=== PATIENT | female | born 1990 ===

== ENCOUNTER 2017-05-04 18:51 | Emergency (ER) | payer OTHER ==
[2017-05-04] MEDS ORDERED: Sodium Chloride 0.9% 1,000 ML IV STA (19:38)
[2017-05-04] MEDS ORDERED: Alum-Mag Hydrox-Simethicone Susp (30 mL) PO STA (19:38)
[2017-05-04 20:22] LABS: BASO % 0.2 % (0.0-2.0); EOS % 0.2 % (0.0-4.0); HEMOGLOBIN 12.8 g/dL (12.0-16.0); LYMPH # 3.4 K/uL (1.0-4.3); LYMPH % 28.3 % (20.0-40.0); MEAN CELL VOLUME 87.4 fl (81.0-99.0); MEAN CORPUSCULAR HEMOGLOBIN 30.3 pg (27.0-31.0); MEAN CORPUSCULAR HGB CONC 34.7 g/dL (33.0-37.0); MEAN PLATELET VOLUME 9.2 fl (7.2-11.7); MONO # 0.6 K/uL (0.0-0.8); NEUT % 66.3 % (50.0-75.0); RBC 4.24 Mil/uL (3.80-5.20); RED CELL DISTRIBUTION WIDTH 12.7 % (11.5-14.5); WHITE BLOOD COUNT 12.1 K/uL (4.8-10.8)
[2017-05-04 20:37] LABS: ALB/GLOB RATIO 1.1 (1.0-2.1); ALBUMIN 4.8 g/dL (3.5-5.0); ALT/SGPT 76 U/L (9-52); AST/SGOT 49 U/L (14-36); BLOOD UREA NITROGEN 8 mg/dl (7-17); CALCIUM 9.8 mg/dL (8.4-10.2); GFR AFRICAN-AMERICAN > 60; GFR NON-AFRICAN AMERICAN > 60; LIPASE 75 U/L (23-300)
[2017-05-04 21:03] LABS: INR 1.1 (0.9-1.2); PARTIAL THROMBOPLASTIN TIME 26.3 Seconds (25.6-37.1); PROTHROMBIN TIME 12.8 Seconds (9.8-13.1)
[2017-05-04] MEDS ORDERED: Alum-Mag Hydrox-Simethicone Susp (30 mL) ONE (21:34)
--- NOTE | 2017-05-04 22:19 | ED PDOC ---
HPI: Abdomen Time Seen by Provider: 05/04/17 19:06 Chief Complaint (Nursing): Abdominal Pain Chief Complaint (Provider): Abdominal pain History Per: Patient History/Exam Limitations: no limitations Onset/Duration Of Symptoms: Days (4) Outside of [place] travel?: No Current Symptoms Are (Timing): Still Present Location Of Pain/Discomfort: Epigastric Associated Symptoms: Nausea, Vomiting, Loss Of Appetite. denies: Fever Additional Complaint(s): The patient is a 26yo female, presents to ED for evaluation of epigastric pain, present for the past 4 days, worsening since onset with some pain radiating to her chest. Reports associated nausea with episodes of vomiting today. she also reports associated weakness, decreased appetite and bodyaches. Of note, pt reports 5 days ago, she was given rx antibiotics for a sore throat at an urgent care center; she reports sore throat was present 7 days ago and was associated with some neck swelling - states these symptoms have since resolved. She denies any rash, cough or rhinorrhea. Also denies fever, known sick contacts or recent travel. Pt offers no additional medical complaints. Past Medical History Reviewed: Historical Data, Nursing Documentation, Vital Signs Vital Signs: Last Vital Signs Temp 98.3 F 05/05/17 00:03 Pulse 90 05/05/17 00:03 Resp 16 05/05/17 00:03 BP 113/65 05/05/17 00:03 Pulse Ox 99 05/05/17 00:03 - Medical History PMH: Asthma, Chronic Kidney Disease - Surgical History Surgical History: Appendectomy, Cholecystectomy - Family History Family History: States: Unknown Family Hx - Home Medications Home Medications: Ambulatory Orders Medication Instructions Recorded oxyCODONE/Acetaminophen [Percocet 1 ea PO Q8 PRN #10 tab 12/02/16 5/325 mg Tab] Non-Formulary 5 ml PO Q4H PRN #20 dose 05/04/17 Omeprazole Magnesium [Prilosec Otc] 20 mg PO DAILY #30 tcp 05/04/17 Ondansetron ODT [Zofran ODT] 1 odt PO Q6 PRN #30 odt 05/04/17 Sucralfate [Carafate] 1 gm PO QID PRN #20 dose 05/04/17 - Allergies Allergies/Adverse Reactions: Allergies Allergy/AdvReac Type Severity Reaction Status Date / Time No Known Allergies Allergy Verified 05/04/17 18:53 Review of Systems ROS Statement: Except As Marked, All Systems Reviewed And Found Negative Constitutional: Positive for: Weakness, Malaise ENT: Negative for: Nose Discharge Respiratory: Negative for: Cough Gastrointestinal: Positive for: Nausea, Vomiting, Abdominal Pain Skin: Negative for: Rash Physical Exam - Reviewed Nursing Documentation Reviewed: Yes Vital Signs Reviewed: Yes - Physical Exam Appears: Positive for: Well, Non-toxic, Uncomfortable Head Exam: Positive for: ATRAUMATIC, NORMAL INSPECTION, NORMOCEPHALIC Skin: Positive for: Normal Color ENT: Positive for: Pharynx Is (clear, tacky mucus membranes), Other ( superficial ulceration of distal tongue and bilateral cheek buccal mucosa. tonsils erythematous with superficial ulceration on right tonsil. lower lip ulceration ). Negative for: Tonsillar Exudate Cardiovascular/Chest: Positive for: Regular Rate, Rhythm Respiratory: Positive for: Normal Breath Sounds. Negative for: Respiratory Distress Gastrointestinal/Abdominal: Positive for: Normal Exam, Soft. Negative for: Mass , Guarding, Rebound Lymphatic: Positive for: Adenopathy (b/l anterior cervical and submandibular adenopathy) Neurologic/Psych: Positive for: Alert, Oriented - Laboratory Results Result Diagrams: 05/04/17 20:00 05/04/17 20:00 - ECG O2 Sat by Pulse Oximetry: 100 (RA) Pulse Ox Interpretation: Normal Medical Decision Making Medical Decision Making: Time: 1914 Impression: Abdominal pain Differential: Gastritis, reflux, adverse reaction to antibiotics, pancreatitis Plan: -- Zofran 8 mg IV -- IV Fluids -- D5NS 500 mL -- Maalox 30 ml PO -- Pepcid 40 mg PO -- Pepcid 20 mg IVP -- IV FLuids -- Lidocaine 1% Viscous 10 ml PO -- Blood culture -- Throat culture Reassess 2200 On reevaluation pt feels better. DW pt findings and plan of care. Scribe Attestation: Documented by dEen Lomax acting as a scribe for Dania Davalos MD. Provider Attestation: All medical record entries made by the Scribe were at my direction and personally dictated by me. I have reviewed the chart and agree that the record accurately reflects my personal performance of the history, physical exam, medical decision making, and the department course for this patient. I have also personally directed, reviewed, and agree with the discharge instructions and disposition. Disposition - Clinical Impression Clinical Impression: Abdominal pain, Pharyngitis, Stomatitis Counseled Patient/Family Regarding: Studies Performed, Diagnosis, Need For Followup, Rx Given - Disposition Referrals: [facility] [Outside] (FOLLOW UP WITH A PRIMARY CARE PROVIDER IN 24-48 HOURS FOR REEVALUATION. CALL [facility] FOR ASSISTANCE SCHEDULING FOLLOW UP APPOINTMENT.) Disposition: Routine/Home Disposition Time: 22:00 Condition: IMPROVED Prescriptions: Non-Formulary 5 ml PO Q4H PRN #20 dose PRN Reason: mouth pain Omeprazole Magnesium [Prilosec Otc] 20 mg PO DAILY #30 tcp Ondansetron ODT [Zofran ODT] 1 odt PO Q6 PRN #30 odt PRN Reason: Nausea/Vomiting Sucralfate [Carafate] 1 gm PO QID PRN #20 dose PRN Reason: Abdominal pain Instructions: Pharyngitis (ED), Acute Abdominal Pain (ED), Oral Mucositis (ED) Forms: [facility] ED School/Work Excuse
[2017-05-05 00:03] VITALS: BP 113/65; PULSE 90; RESP 16; TEMP 98.3
[2017-05-07 16:43] VITALS: O2SAT 100
== END 2017-05-05 00:06 | disposition home or self-care (01) ==
LOC: H.ER 18:51
DX: R10.9 Unspecified abdominal pain (principal); J02.9 Acute pharyngitis, unspecified; K12.1 Other forms of stomatitis